=== PATIENT | female | born 1960 | race Caucasian/White ===

== ENCOUNTER 2016-11-03 17:07 | Emergency (ER) | payer OTHER ==
[~2016-11-03] VITALS: Ht 160 cm; Wt 75.0 kg
[2016-11-03 17:08] VITALS: BP 155/70; PULSE 80; RESP 16; TEMP 97.6; O2SAT 97
[2016-11-03 17:35] VITALS: BP 161/72; PULSE 83; RESP 18; O2SAT 99
--- NOTE | 2016-11-03 17:51 | PD ---
HPI Chief Complaint: Dizziness Time Seen by Provider: 17:40 Travel History International Travel<30 days: No Contact w/Intl Traveler<30days: No Traveled to known affect area: No History of Present Illness HPI This is a 56-year-old female who presents for evaluation. She reports that 2 days ago she woke up feeling generalized weakness in all of her extremities and felt that she had inability to articulate her words. For example she reports that when she tried to lift a plate she dropped a plate. He reports that most of the day she slept because she was feeling generalized weakness. She woke up yesterday feeling normal with her symptoms resolved. She reports that since then she has been feeling excessive fatigue. She does endorse a bitemporal headache which he describes as a pressure. She reports that she has gotten similar daily headaches for several years and this is not new for her. She typically takes aspirin for the headache pain. She denies any weakness currently. She denies any confusion or amnesia, nausea or vomiting, blurred vision, double vision, slurred speech, facial weakness, numbness or tingling in the extremities. This is never happened before. She does report a history of hypothyroidism and she has been taking her medication as prescribed. She also reports a history of fibromyalgia and high cholesterol. She has no other complaints at this time. [facility] Past Medical History Narrative Medical History of high cholesterol, fibromyalgia, hypothyroidism Thyroid Disease: Yes Social History Alcohol Use: No Tobacco Use: Yes (e cigarettes) Substance Use: No Allergies-Medications (Allergen,Severity, Reaction): Coded Allergies: No Known Allergies (Unverified , 11/03/16) Reported Meds & Prescriptions Reported Meds & Active Scripts Active Reported Gabapentin 300 Mg Cap 300 Mg PO TID Clonazepam 1 Mg Tab 1 Mg PO Q8HR PRN Tirosint (Levothyroxine Sodium) 112 Mcg Cap 112 Mcg PO DAILY Temazepam 15 Mg Cap 15 Mg PO HS PRN Sertraline (Sertraline HCl) 100 Mg Tab 150 Mg PO DAILY Simvastatin 40 Mg Tab 40 Mg PO HS Lisinopril 10 Mg Tab 10 Mg PO HS Ropinirole 4 Mg Tab 4 Mg PO HS Review of Systems Except as stated in HPI: all other systems reviewed are Neg Physical Exam Narrative GENERAL: Pleasant well-developed well-nourished female in no acute distress answering questions appropriately vital signs reviewed SKIN: Warm and dry. HEAD: Atraumatic. Normocephalic. EYES: Pupils equal and round. No scleral icterus. No injection or drainage. ENT: No nasal bleeding or discharge. Mucous membranes pink and moist. NECK: Trachea midline. No JVD. CARDIOVASCULAR: Regular rate and rhythm. No murmur appreciated. RESPIRATORY: No accessory muscle use. Clear to auscultation. Breath sounds equal bilaterally. GASTROINTESTINAL: Abdomen soft, non-tender, nondistended. MUSCULOSKELETAL: No obvious deformities. No clubbing. No cyanosis. No edema. NEUROLOGICAL: Awake and alert. No obvious cranial nerve deficits. Motor grossly within normal limits. Normal speech. Normal finger-nose, [id number], rapid alternating movements. PSYCHIATRIC: Appropriate mood and affect; insight and judgment normal. Data Data Last Documented VS Vital Signs Date Time Temp Pulse Resp B/P Pulse Ox O2 Delivery O2 Flow Rate FiO2 11/03/16 17:59 99 Room Air 11/03/16 17:35 83 18 161/72 11/03/16 17:08 97.6 Orders Electrocardiogram (11/03/16 17:47) Complete Blood Count With Diff (11/03/16 17:47) Comprehensive Metabolic Panel (11/03/16 17:47) Ct Brain W/O Iv Contrast(Rout) (11/03/16 17:47) Ecg Monitoring (11/03/16 17:47) Iv Access Insert/Monitor (11/03/16 17:47) Oximetry (11/03/16 17:47) Sodium Chloride 0.9% Flush (Ns Flush) (11/03/16 18:00) Thyroid Stimulating Hormone (11/03/16 17:47) Urinalysis - C+S If Indicated (11/03/16 17:53) Potassium Chloride (Kcl) (11/03/16 18:45) Labs Laboratory Tests Test 11/03/16 11/03/16 12:34 17:35 Urine Color COLORLESS Urine Turbidity CLEAR Urine pH 5.5 Urine Specific [place] 1.001 Urine Protein NEG mg/dL Urine Glucose (UA) NEG mg/dL Urine Ketones NEG mg/dL Urine Occult Blood NEG Urine Nitrite NEG Urine Bilirubin NEG Urine Urobilinogen LESS THAN 2.0 MG/DL Urine Leukocyte Esterase NEG Urine WBC LESS THAN 1 /hpf Urine Squamous Epithelial <1 /hpf Cells Urine Bacteria RARE /hpf Microscopic Urinalysis Comment CULT NOT INDICATED White Blood Count 8.4 TH/MM3 Red Blood Count 4.06 MIL/MM3 Hemoglobin 11.8 GM/DL Hematocrit 35.5 % Mean Corpuscular Volume 87.3 FL Mean Corpuscular Hemoglobin 29.1 PG Mean Corpuscular Hemoglobin 33.4 % Concent Red Cell Distribution Width 12.6 % Platelet Count 254 TH/MM3 Mean Platelet Volume 8.7 FL Neutrophils (%) (Auto) 78.2 % Lymphocytes (%) (Auto) 18.2 % Monocytes (%) (Auto) 2.6 % Eosinophils (%) (Auto) 0.7 % Basophils (%) (Auto) 0.3 % Neutrophils # (Auto) 6.6 TH/MM3 Lymphocytes # (Auto) 1.5 TH/MM3 Monocytes # (Auto) 0.2 TH/MM3 Eosinophils # (Auto) 0.1 TH/MM3 Basophils # (Auto) 0.0 TH/MM3 CBC Comment DIFF FINAL Differential Comment Sodium Level 136 MEQ/L Potassium Level 3.1 MEQ/L Chloride Level 102 MEQ/L Carbon Dioxide Level 24.7 MEQ/L Anion Gap 9 MEQ/L Blood Urea Nitrogen 8 MG/DL Creatinine 0.90 MG/DL Estimat Glomerular Filtration 64 ML/MIN Rate Random Glucose 246 MG/DL Calcium Level 9.0 MG/DL Total Bilirubin 0.2 MG/DL Aspartate Amino Transf 17 U/L (AST/SGOT) Alanine Aminotransferase 22 U/L (ALT/SGPT) Alkaline Phosphatase 74 U/L Total Protein 7.7 GM/DL Albumin 4.0 GM/DL Thyroid Stimulating Hormone 0.316 uIU/ML 3rd Gen [facility] Medical Decision Making Medical Screen Exam Complete: Yes Emergency Medical Condition: Yes Medical Record Reviewed: Yes Interpretation(s) EKG normal sinus rhythm T-wave inversions V1 through V3 Differential Diagnosis Hypothyroidism, dehydration, viral syndrome, electrolyte imbalance, doubt CVA or TIA Narrative Course 56-year-old female who reports that today's that she had feelings of generalized weakness and excessive fatigue. The weakness resolved when she woke up yesterday morning but she is to feel some fatigue. Symptoms aren't really consistent with a TIA or a CVA. She has a normal neurologic examination currently which is reassuring. Plan is for basic lab work, CT brain, EKG and TSH. The patient was given medication for her headache. Her lab work is been reviewed and her potassium was 3.1 but otherwise is reassuring. She will be given oral potassium chloride. discussed with my attending. She is stable for discharge and outpatient follow-up. Procedures EKG Prior to Arrival: Yes Diagnosis Primary Impression: Fatigue Qualified Code: R53.83 - Fatigue, unspecified type Additional Instructions: Follow-up close with primary care physician. Stay well hydrated well- nourished. Return for any new or worsening symptoms. Med/Other Pt SpecificInfo: No Change to Meds Disposition: 01 DISCHARGE HOME Condition: Stable Darryl Mireles Nov 03, 2016 17:51 Condition: Stable Darryl Mireles Nov 03, 2016 17:51
[2016-11-03 17:59] VITALS: O2SAT 99
[2016-11-03] MEDS ORDERED: SODIUM CHLORIDE 0.9% FLUSH 10 ML FLUSH IVF PRN (18:00)
[2016-11-03 18:14] LABS: AUTOMATED NEUTROPHIL # 6.6 TH/MM3 (1.8-7.7); BASOPHIL % 0.3 % (0.0-2.0); EOSINOPHIL # 0.1 TH/MM3 (0-0.4); EOSINOPHIL % 0.7 % (0.0-4.0); HEMATOCRIT 35.5 % (35.0-46.0); HEMO FLAGS DIFF FINAL; LYMPH % 18.2 % (9.0-44.0); LYMPHOCYTE # 1.5 TH/MM3 (1.0-4.8); MEAN CELL VOLUME 87.3 FL (80.0-100.0); MEAN CORPUSCULAR HEMOGLOBIN 29.1 PG (27.0-34.0); MEAN CORPUSCULAR HGB CONC 33.4 % (32.0-36.0); MONO % 2.6 % (0.0-8.0); NEUT % 78.2 % (16.0-70.0); PLATELET COUNT 254 TH/MM3 (150-450); RED BLOOD COUNT 4.06 MIL/MM3 (4.00-5.30); RED CELL DISTRIBUTION WIDTH 12.6 % (11.6-17.2); WHITE BLOOD COUNT 8.4 TH/MM3 (4.0-11.0)
[2016-11-03 18:21] LABS: BACTERIA, URINE RARE /hpf; BLOOD, URINE NEG (NEG); COMMENT (UR) CULT NOT INDICATED; CULTURE IF INDICATED CULT NOT INDICATED; GLUCOSE,URINE NEG (NEG); KETONE, URINE NEG (NEG); NITRITE,URINE NEG (NEG); PH, URINE 5.5 (5.0-8.5); SQUAMOUS EPITHELIAL CELL URINE <1 /hpf (0-5); URINE COLOR COLORLESS (YELLW/STRAW)
[2016-11-03 18:24] LABS: ANION GAP 9 MEQ/L (5-15); AST (GOT) 17 U/L (15-37); BICARBONATE 24.7 MEQ/L (21.0-32.0); BLOOD UREA NITROGEN 8 MG/DL (7-18); CHLORIDE 102 MEQ/L (98-107); GLOMERULAR FILTRATION RATE 64 ML/MIN (>89); POTASSIUM 3.1 MEQ/L (3.5-5.1); SODIUM (NA) 136 MEQ/L (136-145)
[2016-11-03 18:33] LABS: ALKALINE PHOSPHATASE 74 U/L (45-117); ALT (GPT) 22 U/L (10-53); TOTAL BILIRUBIN ADULT 0.2 MG/DL (0.2-1.0)
[2016-11-03] MEDS ORDERED: POTASSIUM CHLORIDE 20 MEQ CONTROLLED RELEASE TAB PO ONE (18:45)
[2016-11-03] MEDS ORDERED: SIMV40TA PO (19:11)
[2016-11-03] MEDS ORDERED: ROPI4TAB PO (19:11)
[2016-11-03] MEDS ORDERED: SERT-129 PO (19:11)
[2016-11-03] MEDS ORDERED: TEMA15CA PO (19:11)
[2016-11-03] MEDS ORDERED: LISI10TA3 PO (19:11)
[2016-11-03] MEDS ORDERED: GABA300C5 PO (19:16)
[2016-11-03] MEDS ORDERED: CLON1TAB PO (19:16)
[2016-11-03] MEDS ORDERED: TIRO112C PO (19:16)
--- NOTE | 2016-11-03 19:17 | RADRPT ---
EXAM DATE/TIME: 11/03/2016 19:09 [facility] COMPARISON: No previous studies available for comparison. INDICATIONS : Headache, dizziness, and bilateral weakness. RADIATION DOSE: 38.46 CTDIvol (mGy) MEDICAL HISTORY : None SURGICAL HISTORY : None. ENCOUNTER: Initial ACUITY: 1 day PAIN SCALE: 5/10 LOCATION: cranial TECHNIQUE: Multiple contiguous axial images were obtained of the head. Using automated exposure control and adj ustment of the mA and/or kV according to patient size, radiation dose was kept as low as reasonably a chievable to obtain optimal diagnostic quality images. FINDINGS: CEREBRUM: The ventricles are normal for age. No evidence of midline shift, mass lesion, hemorrhage or acute in farction. No extra-axial fluid collections are seen. POSTERIOR FOSSA: The cerebellum and brainstem are intact. The 4th ventricle is midline. The cerebellopontine angle i s unremarkable. EXTRACRANIAL: The visualized portion of the orbits is intact. Minimal polypoid mucosal thickening in the sphenoid s inus. SKULL: The calvaria is intact. No evidence of skull fracture. CONCLUSION: No acute intracranial findings Jose Hare MD on November 03, 2016 at 19:14 Board Certified Radiologist. This report was verified electronically.
[2016-11-03] MEDS ORDERED: MORPHINE SULFATE 4 MG/ML INJ IV PUSH ONE (19:45)
[2016-11-03 20:05] VITALS: BP 154/76; PULSE 82; RESP 16; O2SAT 96
--- NOTE | 2016-11-04 15:49 | EKG ---
Date Performed: 11/03/2016 Time Performed: 17:57:20 PTAGE: 56 years EKG: Sinus rhythm INCOMPLETE RIGHT BUNDLE BRANCH BLOCK NONSPECIFIC T-WAVE ABNORMALITY BORDERLINE ECG NO PREVIOUS TRACING DOCTOR: Tommie An Interpretating Date/Time 11/04/2016 15:47:24
== END 2016-11-03 20:09 | disposition home or self-care (01) ==
LOC: NEPA 17:07
DX: R53.83 Other fatigue (principal); M79.7 Fibromyalgia; E78.00 Pure hypercholesterolemia, unspecified; E87.6 Hypokalemia
CPT/HCPCS: 70450; 80053; 81001; 84443; 85025; 93005; 96374; 99284; J2270

== ENCOUNTER → 2016-12-06 | Outpatient (CLI) | payer OTHER ==
[~2016-12-06] VITALS: Ht 160 cm; Wt 72.3 kg
[~2016-12-06] MED LIST: CHLORHEXIDINE GLUCONATE 2 % 1 PACK (2 CLOTHS) TOPICAL PRN; CLON1TAB PO; GABA300C5 PO; INSULIN HUMAN REGULAR 1,000 UNITS/10 ML VIAL SQ PRN; LACTATED RINGER'S 1000 ML IV PRN; LISI10TA3 PO; METOPROLOL TARTRATE 25 MG TAB PO PRN; POVIDONE IODINE 5% (ANTISEPSIS KIT) 4 APPLICATIONS EACH NARE PRN; PROPOFOL 200 MG/20 ML AMP IV ONE; ROPI4TAB PO; SERT-129 PO; SIMV40TA PO; SODIUM CHLORID 0.9% 500 ML IV PRN; TEMA15CA PO; TIRO112C PO
[2016-12-06 08:54] VITALS: BP 99/58; PULSE 67; RESP 20; TEMP 98.7; O2SAT 97
[2016-12-06 10:56] VITALS: BP 90/55; PULSE 70; RESP 16; O2SAT 96
== END ==
LOC: HEND 08:17
DX: K25.9 Gastric ulcer, unspecified as acute or chronic, without hemorrhage or perforation (principal); K21.9 Gastro-esophageal reflux disease without esophagitis; R19.7 Diarrhea, unspecified; R12 Heartburn; D12.0 Benign neoplasm of cecum; K62.1 Rectal polyp; K57.30 Diverticulosis of large intestine without perforation or abscess without bleeding
CPT/HCPCS: 88305; 88307; 88312

== ENCOUNTER → 2017-06-27 | Outpatient (CLI) | payer OTHER ==
[~2017-06-27] MED LIST changes: -CHLORHEXIDINE GLUCONATE 2 % 1 PACK (2 CLOTHS) TOPICAL PRN; -INSULIN HUMAN REGULAR 1,000 UNITS/10 ML VIAL SQ PRN; +IOHEXOL 350 MG/ML 10 ML VIAL (for RAD DIAG) IVCONTRAST ONE; -LACTATED RINGER'S 1000 ML IV PRN; -METOPROLOL TARTRATE 25 MG TAB PO PRN; -POVIDONE IODINE 5% (ANTISEPSIS KIT) 4 APPLICATIONS EACH NARE PRN; -PROPOFOL 200 MG/20 ML AMP IV ONE; -SODIUM CHLORID 0.9% 500 ML IV PRN
--- NOTE | 2017-06-27 13:50 | RADRPT ---
EXAM DATE/TIME: 06/27/2017 12:52 [facility] COMPARISON: No previous studies available for comparison. INDICATIONS : Pain for one month. MEDICAL HISTORY : None. SURGICAL HISTORY : Cervical fusion. ENCOUNTER: Initial ACUITY: 1 month PAIN SCORE: 0/10 LOCATION: Bilateral T-spine FINDINGS: There is normal alignment of the thoracic vertebral bodies. Vertebral body height is maintained. No evidence of fracture or subluxation. Pedicles are intact at all levels. The paravertebral reflecti ons are not thickened. CONCLUSION: Negative. Nilton Morin MD FACR on June 27, 2017 at 13:48 Board Certified Radiologist. This report was verified electronically.
--- NOTE | 2017-06-27 13:50 | RADRPT ---
EXAM DATE/TIME: 06/27/2017 12:53 [facility] COMPARISON: No previous studies available for comparison. INDICATIONS : Pain for one month. MEDICAL HISTORY : None. SURGICAL HISTORY : Cervical fusion. ENCOUNTER: Initial ACUITY: 1 month PAIN SCORE: 4/10 LOCATION: Bilateral L-spine FINDINGS: There are five non-rib bearing vertebral bodies. The vertebral bodies are in normal alignment withou t evidence of subluxation or scoliosis. The disc spaces are maintained. The posterior elements are intact without evidence of spondylolysis. The pedicles are intact. Bony mineralization is normal. No fracture is identified. Moderate atherosclerotic vascular disease is evident. CONCLUSION: Negative for compression or significant degenerative changes. Nilton Morin MD FACR on June 27, 2017 at 13:48 Board Certified Radiologist. This report was verified electronically.
--- NOTE | 2017-06-27 14:34 | RADRPT ---
EXAM DATE/TIME: 06/27/2017 12:39 [facility] COMPARISON: No previous studies available for comparison. INDICATIONS : Pain for one month. MEDICAL HISTORY : None. SURGICAL HISTORY : Cervical fusion ENCOUNTER: Initial ACUITY: 1 month PAIN SCORE: 4/10 LOCATION: Bilateral C-spine FINDINGS: A complete cervical spine series shows an anterior fusion plate with intervening bone graft involving C4, C5, C6, and C7. There is a mild kyphosis centered at C3-C4. Straightening involving the anterior cervical spine with minimal grade 1 anterolisthesis of C7 on T1. No fracture. Large bridging anterio r osteophyte at C3-C4. Neural foramina are patent bilaterally. Paraspinal soft tissues are unremarkab le. CONCLUSION: 1. Anterior fusion from C4-C7. 2. Degenerative disc disease at C3-C4. Santy Pruitt Jr., MD on June 27, 2017 at 14:31 Board Certified Radiologist. This report was verified electronically.
--- NOTE | 2017-06-27 14:50 | RADRPT ---
EXAM DATE/TIME: 06/27/2017 13:04 [facility] COMPARISON: No previous studies available for comparison. INDICATIONS : Syncope and collapse. IV CONTRAST: 93 cc Omnipaque 350 (iohexol) IV RADIATION DOSE: 32.41 CTDIvol (mGy) MEDICAL HISTORY : Hypertension. SURGICAL HISTORY : Appendectomy. ENCOUNTER: Initial ACUITY: 1 day PAIN SCALE: 0/10 LOCATION: cranial TECHNIQUE: Multiple contiguous axial images were obtained of the head. Using automated exposure control and adj ustment of the mA and/or kV according to patient size, radiation dose was kept as low as reasonably a chievable to obtain optimal diagnostic quality images. DICOM format image data is available electro nically for review and comparison. FINDINGS: CEREBRUM: The ventricles are normal for age. No evidence of midline shift, cerebral edema or blood products. No extra-axial fluid collections are seen. POSTERIOR FOSSA: The cerebellum and brainstem are intact. The 4th ventricle is midline. The cerebellar pontine angle is unremarkable. EXTRACRANIAL: The visualized portion of the orbits is intact. SKULL: The calvaria is intact. No evidence of skull fracture. POST CONTRAST: No abnormal areas of parenchymal or dural enhancement. No evidence of blood-brain barrier breakdown. CONCLUSION: Normal examination. Santy Pruitt Jr., MD on June 27, 2017 at 14:47 Board Certified Radiologist. This report was verified electronically.
== END ==
LOC: HRAD 12:13
DX: R55 Syncope and collapse (principal); M54.9 Dorsalgia, unspecified
CPT/HCPCS: 70470; 72050; 72070; 72110; Q9967

== ENCOUNTER → 2017-07-24 | Outpatient (CLI) | payer OTHER ==
--- NOTE | 2017-07-24 15:58 | RADRPT ---
EXAM DATE/TIME: 07/24/2017 13:41 [facility] COMPARISON: CT BRAIN W & W/O CONTRAST, June 27, 2017, 13:04. INDICATIONS : Occlusion and stenosis of left carotid. IV CONTRAST: 75 cc Omnipaque 350 (iohexol) IV RADIATION DOSE: 15.81 CTDIvol (mGy) MEDICAL HISTORY : Thyroid nodules. SURGICAL HISTORY : None. ENCOUNTER: Initial ACUITY: 1 day PAIN SCALE: 1/10 LOCATION: Left neck Elevated flow velocities and ICA/CCA ratios have been found to correlate with increased degrees of vessel stenosis, calculated as percentage of diameter relative to a normal segment of distal ICA/CCA. TECHNIQUE: Volumetric scanning was performed using a multirow detector CT scanner. The data was post processed with a variety of visualization algorithms including full-volume maximum intensity projection, multip lanar sliding thin-slab reformation, curved-planar reformation, and surface-rendering techniques. Us ing automated exposure control and adjustment of the mA and/or kV according to patient size, radiatio n dose was kept as low as reasonably achievable to obtain optimal diagnostic quality images. DICOM f ormat image data is available electronically for review and comparison. FINDINGS: AORTIC ARCH: There is a three-vessel origin of the great vessels from the aorta. No evidence of ostial narrowing. RIGHT CAROTID: The common carotid artery is intact. The carotid bulb has a normal configuration without ulceration o r narrowing. The internal carotid artery lumen is smooth without stenosis. The external carotid gabi ry is intact. LEFT CAROTID: The common carotid is widely patent. There is focal high grade stenosis in the origin of the left int ernal carotid this is estimated to be in the range of at least 80% by NASCET criteria. The more cepha lad portion of the left internal carotid is widely patent. VERTEBRALS: The vertebral arteries have a symmetric diameter. No stenotic lesions are seen. CONCLUSION: 1. Left carotid: 2. High grade stenosis in the origin of the left internal carotid estimated to be in the range of 80% by NASCET criteria. 3. 4. Right carotid: 5. No hemodynamically significant stenosis identified on the right. 6. Small, nodular appearing thyroid. Dirk Morin MD on July 24, 2017 at 15:52 Board Certified Radiologist. This report was verified electronically.
== END ==
LOC: HRAD 13:06
PROVIDERS: ATTEND Internal Medicine Cardiovascular Disease
DX: I65.22 Occlusion and stenosis of left carotid artery (principal)
CPT/HCPCS: 70498; Q9967